=== PATIENT | female | born 1950 | race Two or more races ===

== ENCOUNTER 2024-09-14 09:35 | Emergency (ER) | payer MEDICARE, MEDICAID, SELFPAY ==
[2024-09-14 09:51] VITALS: BP 123/74; PULSE 78; RESP 22; TEMP 37.1; O2SAT 89; BMI 28.3
--- NOTE | 2024-09-14 09:59 | PD.EDRME ---
Rapid Medical Screening Exam E Arrival date/time: 09/14/24 09:35 73-year-old female with a history of pulmonary fibrosis, COPD, hyperlipidemia, hypertension, type 2 diabetes presents to the emergency room with a chief complaint of shortness of breath, coughing x 3 days. Patient is normally on home oxygen during nighttime. I have greeted and performed a focused initial assessment of this patient. A comprehensive ED assessment and evaluation of the patient, analysis of all test results, and completion of the medical decision making process will be conducted by additional ED providers. Chief Complaint: Back Pain/Injury Vital signs: Vital Signs Temperature 98.8 F 09/14/24 09:51 Pulse Rate 78 09/14/24 09:51 Respiratory Rate 22 H 09/14/24 09:51 Blood Pressure 123/74 09/14/24 09:51 Pulse Oximetry (%) 89 L 09/14/24 09:51 Oxygen Delivery Method Room Air 09/14/24 09:51 Vital signs reviewed by provider: Yes
--- NOTE | 2024-09-14 11:23 | PC.NURSE ---
PATIENT TAKEN TO VEHICLE BY DAUGHTER. DAUGHTER SIGNED AMA FORM.
== END 2024-09-14 11:23 | disposition left against medical advice (07) ==
PROVIDERS: Emergency Provider Emergency Medicine
DX: R06.02 Shortness of breath (principal); J44.9 Chronic obstructive pulmonary disease, unspecified; E11.9 Type 2 diabetes mellitus without complications; I10 Essential (primary) hypertension; Z53.29 Procedure and treatment not carried out because of patient's decision for other reasons; Z99.81 Dependence on supplemental oxygen
CPT/HCPCS: 80053; 85025; 99283